=== PATIENT | female | born 1970 | race African-American/Black ===

== ENCOUNTER 2017-03-20 21:53 | Emergency (ER) | payer SELFPAY ==
[~2017-03-20 21:53] MED LIST: ADRENALINE CHL INJ (ABBOJECT) ONE; ADRENALINE CHL INJ ONE; SODIUM BICARBONATE 8.4% INJ ADULT ONE
[2017-03-20] MEDS ORDERED: NS 1000 ML 1,000 ML ONE ×2 (21:56→22:24)
[2017-03-20] MEDS: ADRENALINE CHL INJ (ABBOJECT) IVP SCH ×5 (21:57→22:09)
[2017-03-20] MEDS ORDERED: ATROPINE SULFATE ABBOJECT IVP ONE (21:59)
[2017-03-20] MEDS: SODIUM BICARBONATE 8.4% INJ ADULT IVP SCH ×2 (22:02→22:12)
[2017-03-20] MEDS ORDERED: NARCAN INJ IVP ONE (22:04)
[2017-03-20] MEDS ORDERED: NS 1000 ML 1,000 ML IV ONE ×2 (22:20→23:07)
--- NOTE | 2017-03-20 22:32 | RAD ---
HISTORY: Endotracheal tube placement Study: Single view of the chest. Comparison: None. Findings: Heart is enlarged. Diffuse mild pulmonary edema like pattern. Endotracheal tube terminates approxima te 1.5 cm above the robert. IMPRESSION: 1. Endotracheal tube terminating 1.5 cm above the robert. Recommend retraction 2-3 cm. 2. Cardiomegaly and pulmonary edema like pattern. Reported By:
[2017-03-20 22:34] LABS: BASOPHILS # (AUTO) 0.1 X10^3/uL (0.0-0.1); BASOPHILS % (AUTO) 1.1 % (0.2-1.0); EOSINOPHILS # (AUTO) 0.1 x10^3/uL (0.0-0.2); EOSINOPHILS % (AUTO) 0.8 % (0.9-2.9); HEMATOCRIT 37.8 % (36.0-47.0); HEMOGLOBIN 12.3 g/dL (12.0-16.0); LYMPHOCYTES # (AUTO) 7.4 X10^3/uL (1.3-2.9); LYMPHOCYTES % (AUTO) 74.7 % (21.0-51.0); MEAN CORPUSCULAR HEMOGLOBIN 29.3 pg (27.0-34.0); MEAN CORPUSCULAR HGB CONC 32.5 g/dL (33.0-35.0); MEAN PLATELET VOLUME 10.5 fL (7.4-11.0); MONOCYTES # (AUTO) 0.4 x10^3/uL (0.3-0.8); MONOCYTES % (AUTO) 3.8 % (0.0-13.0); NEUTROPHILS # (AUTO) 1.9 x10^3/uL (2.2-4.8); NEUTROPHILS % (AUTO) 19.6 % (42.0-75.0); PLATELET COUNT 181 X10^3/uL (150.0-450.0); RED CELL DISTRIBUTION WIDTH 15.8 % (11.6-16.5); WHITE BLOOD COUNT 9.9 X10^3/uL (3.6-10.0)
[2017-03-20 22:37] LABS: ABG BASE EXCESS -11.8 mmol/L (-2.0-2.0)
--- NOTE | 2017-03-20 22:37 | DR.CA ---
HPI - Time Seen Time seen: 09:35 (on arrival) - HPI Comment HPI Comment: patient brought in full arrest. Ems doing C AR, no pulse, monitor with irregular rhythm no respirations. ACLS initiated. Epi, atropine, bicarbonate given (see Code sheet) Defibrillation done when vfib seen. Pulse returned and patient intubated and placed on vent. - Complaint Chief Complaint:: cardiac arrest - Reviewed Nurses Notes Review: Yes - Source History Provided: EMS - Mode of arrival Mode of Arrival: EMS - Timing Cardiac Arrest Time: 10 min FIELD STAFF - Duration Down time from arrest until ambulance arrival: 5 min Total time from arrest until hospital arrival: 10min - Context Onset: Witnessed History R/T Cardiac Arrest: None Prehospital Care: Initial Rhythm: PEA Prehospital: Treatment: CPR Prehospital: Response to Treatment: No Response - Associated Signs and Symptoms Associated Signs and Symptoms: None - Other History Other History: hypertension ROS - Review of Systems Constitutional: See HPI Unable to Obtain Due To: Medical urgency, Intubated PE - General Limitations: Physical Limitation, Other (intubated cardiac arrest) General Appearance: Obtunded - Head Head Exam: Atraumatic - ENT ENT Exam: Normal Exam - Airway Airway: Intubated ET tube placement confirmed by: Visualization, Exam, ETCO2, CXR Gag: Absent - Neck Neck Exam: Normal Inspection, Trachea Midline - Chest Chest Inspection: Normal Inspection - Respiratory Ventilation: Assisted Respiratory Exam: Other (no respiration) - Cardiovascular Cardiovascular Exam: Other (pea) - Abdominal Exam Abdominal Exam: Normal Inspection, Soft. negative: Distention - Extremities Extremities Exam: Normal Inspection, Full ROM - Back Back Exam: Normal Inspection, Full ROM - Skin Skin Exam: Intact, Normal Color - Diagnosis Discharge Problem: Cardiac arrest - Discharge Plan Disposition: Disch/Tx to Hospital Condition: Critical - Follow ups/Referrals Follow ups/Referrals: [facility],None [Primary Care Provider] - 3 days - Instructions Course - Treatment Treatment: patient brought in with cardiac arrest. ACLS initiated and after epi , bicarb, atropine, defibrillation patients pulse returned. Paatient intubated and [facility] called and case discussed with Dr. Martino ER and accepted. ROR - Labs Reviewed Result Diagrams: 03/20/17 20:16 03/20/17 20:16
[2017-03-20 22:38] LABS: ABG ALLEN TEST POS; ABG HCO3 15.6 mmol/L (22-26); FRACTIONATED INSPIRED OXYGEN 100
[2017-03-20 22:49] LABS: PLATELET MORPHOLOGY COMMENT NORMAL (NORMAL)
[2017-03-20] MEDS ORDERED: VALIUM INJ ONE (23:00)
[2017-03-20] MEDS ORDERED: VALIUM INJ IM ONE (23:03)
[2017-03-20] MEDS ORDERED: NORCURON INJ 10 MG VIAL IVP ONE (23:07)
[2017-03-20] MEDS ORDERED: NORCURON INJ 10 MG VIAL ONE (23:09)
[2017-03-20 23:10] LABS: CALCIUM 7.4 mg/dL (8.5-10.1); CARBON DIOXIDE 21.4 mmol/L (21-32); COR CA(FOR HYPOALB) 8.2 mg/dL (8.5-10.1); CREATININE 1.49 mg/dL (0.55-1.02); TROPONIN I 0.96 ng/mL (0-1.5)
[2017-03-21] VITALS: BP 173/92
== END 2017-03-21 00:15 | disposition hospice, inpatient (51) ==
LOC: ER 21:53
PROC: 5A12012 Performance of Cardiac Output, Single, Manual (ICD-10-PCS; principal; 2017-03-20)
PROC: 0T9B70Z Drainage of Bladder with Drainage Device, Via Natural or Artificial Opening (ICD-10-PCS; principal; 2017-03-20)
PROC: 0D9670Z Drainage of Stomach with Drainage Device, Via Natural or Artificial Opening (ICD-10-PCS; principal; 2017-03-20)
DX: I46.9 Cardiac arrest, cause unspecified (principal)
CPT/HCPCS: 31500; 36415; 36600; 43753; 71010; 80053; 82550; 82553; 82803; 83735; 84484; 85025; 85610; 85730; 92950; 93005; 93010; 93041; 96365; 96367; 96374; 96375; 99285; A4222; A4618; J0170; J3360; J3490